=== PATIENT | female | born 1965 | race African-American/Black ===

== ENCOUNTER 2018-05-03 06:25 | Emergency (ER) | payer SELFPAY ==
[2018-05-03] MEDS ORDERED: TETRACAINE HCL 0.5% OPH SOLN 2 ML OS ONE (07:25)
--- NOTE | 2018-05-03 07:26 | ER Document Report ---
HPI - HPI Patient complains to provider of: Left eye irritation Onset: Other Onset/Duration: Persistent - 1 month Quality of pain: Achy Pain Level: 3 Context: Patient presents complaining of left eye irritation for the past month. Patient feels that she has had problems with the upper eyelid. Patient denies wearing contact lenses. Patient states that she saw her primary doctor for this last month and was put on tobramycin drops. Patient is still continue to use the tobramycin drops without any improvement of her symptoms. She does complain of some blurring to her vision. Associated Symptoms: Other - Left eyelid discomfort Exacerbated by: Denies Relieved by: Denies Similar symptoms previously: No Recently seen / treated by doctor: Yes - ROS ROS below otherwise negative: Yes Systems Reviewed and Negative: Yes All other systems reviewed and negative - CONSTITUTIONAL Constitutional: DENIES: Fever - EENT EENT: REPORTS: Eye problems - GASTROINTESTINAL Gastrointestinal: DENIES: Nausea, Patient vomiting - REPRODUCTIVE Reproductive: DENIES: : - DERM Skin Color: Normal Skin Problems: None Past Medical History - General Information source: Patient - Social History Smoking Status: Current Every Day Smoker Smoking Education Provided: Yes Frequency of alcohol use: None Drug Abuse: None Occupation: None Lives with: Family Family History: Reviewed & Not Pertinent - Past Medical History Cardiac Medical History: Reports: Hx Hypertension Pulmonary Medical History: Denies: Hx Asthma, Hx Bronchitis, Hx COPD, Hx Pneumonia Past Surgical History: Reports: Hx Thyroid Surgery - thyroidectomy - Immunizations Hx Diphtheria, Pertussis, Tetanus Vaccination: Yes Vertical Provider Document - CONSTITUTIONAL Agree With Documented VS: Yes Exam Limitations: No Limitations General Appearance: WD/WN, No Apparent Distress - INFECTION CONTROL TRAVEL OUTSIDE OF THE [place] IN LAST 30 DAYS: No - HEENT HEENT: Atraumatic, Normocephalic Notes: No corneal abrasion, ulcer, foreign body or dendrite. Extraocular movements intact. Intraocular pressure 15 with a 95% confidence interval. Light crusting noted to have margins of left eyelid. Patient with purulent drainage from abscess on the inner upper left eyelid. Specimen collected for culture. - NECK Neck: Normal Inspection - RESPIRATORY Respiratory: Breath Sounds Normal, No Respiratory Distress - CARDIOVASCULAR Cardiovascular: Regular Rate, Regular Rhythm - BACK Back: Normal Inspection - MUSCULOSKELETAL/EXTREMETIES Musculoskeletal/Extremeties: MAEW - NEURO Level of Consciousness: Awake, Alert, Appropriate Motor/Sensory: No Motor Deficit - DERM Integumentary: Warm, Dry, No Rash Course - Vital Signs Vital signs: Temp Pulse Resp BP Pulse Ox 97.9 F 85 18 139/88 H 95 05/03/18 06:30 05/03/18 06:30 05/03/18 06:30 05/03/18 06:30 05/03/18 06:30 Discharge - Discharge Clinical Impression: Eyelid abscess Qualifiers: Laterality: left Qualified Code(s): H00.036 - Abscess of eyelid left eye, unspecified eyelid Condition: Stable Disposition: HOME, SELF-CARE Instructions: Abscess ([facility]), Topical Erythromycin ([facility]) Additional Instructions: Return immediately for any new or worsening symptoms Followup with your primary care provider, call tomorrow to make a followup appointment Follow-up with proposal editor on Saturday, call first thing on Saturday morning for an appointment. Let them know that you are seen in the emergency department. Culture is pending, we will call if you need any different treatments. Return over the weekend for any worsening symptoms. Prescriptions: Erythromycin Base [Erythromycin] 1 applic OP QID #3.5 oint..gm. Referrals: [facility] [Provider Group] - 05/05/18 [facility] [Provider Group] - 05/05/18
[2018-05-03] MEDS ORDERED: ERYTHROMYCIN 0.5% OPH OINTMENT 3.5 GM TUBE OS ONE (08:23)
[2018-05-03 09:06] VITALS: BP 137/84
== END 2018-05-03 09:07 | disposition home or self-care (01) ==
LOC: ER 06:25
DX: H00.034 Abscess of left upper eyelid (principal); H53.8 Other visual disturbances; F17.200 Nicotine dependence, unspecified, uncomplicated; I10 Essential (primary) hypertension
CPT/HCPCS: 99283; 87070; 87205; 87077; 87186; J3490

== ENCOUNTER 2018-09-02 20:30 | Emergency (ER) | payer SELFPAY ==
[2018-09-02 21:15] LABS: ABSOLUTE BASOPHILS # (AUTO) 0.1 10^3/uL (0.0-0.2); ABSOLUTE EOSINOPHILS # (AUTO) 0.1 10^3/uL (0.0-0.6); ABSOLUTE LYMPHOCYTES (AUTO) 2.6 10^3/uL (0.5-4.7); ABSOLUTE MONOCYTES (AUTO) 0.7 10^3/uL (0.1-1.4); ABSOLUTE NEUT (AUTO) 4.6 10^3/uL (1.7-8.2); BASOPHILS % (AUTO) 0.9 % (0-2); EOSINOPHILS % (AUTO) 0.7 % (0-6); HEMATOCRIT 36.3 % (36.0-47.0); HEMOGLOBIN 11.9 g/dL (12.0-15.5); MEAN CORPUSCULAR HEMOGLOBIN 28.7 pg (27.0-33.4); MEAN CORPUSCULAR HGB CONC 32.8 g/dL (32.0-36.0); MEAN CORPUSCULAR VOLUME 88 fl (80-97); MONOCYTES % (AUTO) 8.3 % (3-13); PLATELET COUNT 254 10^3/uL (150-450); RED BLOOD COUNT 4.15 10^6/uL (3.72-5.28); RED CELL DISTRIBUTION WIDTH 14.2 % (11.5-14.0); SEGMENTED NEUTROPHILS % (AUTO) 57.1 % (42-78); TOTAL CELLS COUNTED % (AUTO) 100 %
[2018-09-02 21:31] LABS: ALANINE AMINOTRANSFERASE 22 U/L (9-52); ALBUMIN 4.4 g/dL (3.5-5.0); ALKALINE PHOSPHATASE 63 U/L (38-126); ANION GAP 12 (5-19); ASPARTATE AMINO TRANSFERASE 20 U/L (14-36); BILIRUBIN,DIRECT 0.3 mg/dL (0.0-0.4); BILIRUBIN,TOTAL 0.5 mg/dL (0.2-1.3); BLOOD UREA NITROGEN 13 mg/dL (7-20); CALCIUM 9.4 mg/dL (8.4-10.2); CARBON DIOXIDE 34 mmol/L (22-30); CHLORIDE 99 mmol/L (98-107); GLUCOSE 106 mg/dL (75-110); POTASSIUM 3.8 mmol/L (3.6-5.0); SODIUM 144.8 mmol/L (137-145)
[2018-09-02] MEDS ORDERED: METOCLOPRAMIDE HCL ORAL SOLN 10 MG/10 ML UDCUP PO ONE (21:40)
[2018-09-02] MEDS ORDERED: MAG HYDROX/AL HYDROX/SIMETH SUSP 30 ML UDCUP PO ONE (21:40)
[2018-09-02] MEDS ORDERED: LIDOCAINE 2% VISCOUS SOLN 20 ML UDCUP PO ONE (21:40)
--- NOTE | 2018-09-02 21:48 | ER Document Report ---
ED General - General Chief Complaint: Chest Pain Stated Complaint: CHEST PAIN Time Seen by Provider: 09/02/18 21:11 Mode of Arrival: Ambulatory Information source: Patient, Relative, [facility] Records Notes: 52-year-old female with hypertension, hypothyroidism presents with complaint of chest pain that started 5 days prior to arrival. Patient states that she initially experienced chest pain 5 days ago after eating. She describes it as a soreness that is intermittent and only lasts a few minutes at a time. Patient states that since that time she is experienced 1-2 episodes per day that are mostly related with eating food. She denies a burning sensation, nausea, vomiting, shortness of breath, back pain, abdominal pain, dysuria, diarrhea, fever, chills. Patient is currently chest pain-free. She does admit to smoking half a pack of cigarettes per day for the last 20 years. TRAVEL OUTSIDE OF THE [place] IN LAST 30 DAYS: No - HPI Onset: Other Onset/Duration: Intermittent Quality of pain: Achy Severity: Mild Associated symptoms: Chest pain. denies: Fever, Headache, Nausea, Vomiting, Shortness of breath, Sweating, Weakness Exacerbated by: Food Relieved by: Denies Similar symptoms previously: No Recently seen / treated by doctor: No - Related Data Allergies/Adverse Reactions: No Known Allergies Allergy (Verified 05/03/18 07:48) Past Medical History - General Information source: Patient, [facility] Records - Social History Smoking Status: Current Every Day Smoker Cigarette use (# per day): Yes - 10 Smoking Education Provided: Yes - Smoking cessation counseling was provided for 4 minutes at the bedside Frequency of alcohol use: Occasional Drug Abuse: Marijuana Lives with: Spouse/Significant other Family History: Reviewed & Not Pertinent Patient has suicidal ideation: No Patient has homicidal ideation: No - Past Medical History Cardiac Medical History: Reports: Hx Hypertension Pulmonary Medical History: Denies: Hx Asthma, Hx Bronchitis, Hx COPD, Hx Pneumonia Renal/ Medical History: Denies: Hx Peritoneal Dialysis Past Surgical History: Reports: Hx Orthopedic Surgery - carpal tunnel surg, r shoulder, Hx Thyroid Surgery - thyroidectomy - Immunizations Hx Diphtheria, Pertussis, Tetanus Vaccination: Yes Review of Systems - Review of Systems Notes: REVIEW OF SYSTEMS: CONSTITUTIONAL : Denies fever, chills, or sweats. Denies recent illness. Denies weight loss, recent hospitalizations. EENT: Denies visual changes, eye pain. Denies sore throat, oral lesions, difficulty swallowing. CARDIOVASCULAR: Denies palpitations. Denies lower extremity edema. RESPIRATORY: Denies cough. Denies shortness of breath, wheezing. GASTROINTESTINAL: Denies abdominal pain or distention. Denies nausea, vomiting , or diarrhea. Denies blood in vomitus, stools, or per rectum. Denies black, tarry stools. Denies constipation. GENITOURINARY: Denies difficulty urinating, painful urination, frequency, blood in urine, or vaginal discharge. MUSCULOSKELETAL: Denies back or neck pain or stiffness. Denies joint pain or swelling. SKIN: Denies rash, lesions or sores. HEMATOLOGIC : Denies easy bruising or bleeding. LYMPHATIC: Denies swollen glands. NEUROLOGICAL: Denies confusion or altered mental status. Denies loss of consciousness. Denies dizziness or lightheadedness. Denies headache. Denies weakness or paralysis. Denies problems difficulty with ambulation, slurred speech. Denies sensory loss, numbness, or tingling. Denies seizures. PSYCHIATRIC: Denies anxiety or stress. Denies depression, suicidal ideation, or homicidal ideation. Denies visual or auditory hallucinations. Physical Exam - Vital signs Vitals: Temp Pulse Resp BP Pulse Ox 98.3 F 97 18 166/89 H 97 09/02/18 20:39 09/02/18 20:39 09/02/18 20:39 09/02/18 20:39 09/02/18 20:39 Interpretation: Hypertensive - Notes Notes: PHYSICAL EXAMINATION: GENERAL: Well-appearing, well-nourished and in no acute distress. HEAD: Atraumatic, normocephalic. EYES: Pupils equal round and reactive to light, extraocular movements intact, conjunctiva are normal. ENT: Nares patent, oropharynx clear without exudates. Moist mucous membranes. NECK: Normal range of motion, supple without lymphadenopathy LUNGS: Breath sounds clear to auscultation bilaterally and equal. No wheezes rales or rhonchi. HEART: Regular rate and rhythm without murmurs ABDOMEN: Soft, nontender, nondistended abdomen. No guarding, no rebound. No masses appreciated. Female : deferred Musculoskeletal: Normal range of motion, no pitting or edema. No cyanosis. NEUROLOGICAL: Cranial nerves grossly intact. Normal speech, normal gait. Normal sensory, motor exams PSYCH: Normal mood, normal affect. SKIN: Warm, Dry, normal turgor, no rashes or lesions noted. Course - Re-evaluation Re-evalutation: Chest X-Ray 09/02/18 20:47 IMPRESSION: No acute finding. 2010 [facility]- All Rights Reserved Laboratory 09/02/18 09/02/18 09/02/18 21:01 21:01 21:01 WBC 8.0 RBC 4.15 Hgb 11.9 L Hct 36.3 MCV 88 MCH 28.7 MCHC 32.8 RDW 14.2 H Plt Count 254 Seg Neutrophils % 57.1 Lymphocytes % 33.0 Monocytes % 8.3 Eosinophils % 0.7 Basophils % 0.9 Absolute Neutrophils 4.6 Absolute Lymphocytes 2.6 Absolute Monocytes 0.7 Absolute Eosinophils 0.1 Absolute Basophils 0.1 Sodium 144.8 Potassium 3.8 Chloride 99 Carbon Dioxide 34 H Anion Gap 12 BUN 13 Creatinine 1.01 Est GFR ( Amer) > 60 Est GFR (Non-Af Amer) 57 L Glucose 106 Calcium 9.4 Total Bilirubin 0.5 Direct Bilirubin 0.3 Neonat Total Bilirubin Not Reportable Neonat Direct Bilirubin Not Reportable Neonat Indirect Bili Not Reportable AST 20 ALT 22 Alkaline Phosphatase 63 Troponin I < 0.012 Total Protein 8.0 Albumin 4.4 Lipase 09/02/18 21:01 WBC RBC Hgb Hct MCV MCH MCHC RDW Plt Count Seg Neutrophils % Lymphocytes % Monocytes % Eosinophils % Basophils % Absolute Neutrophils Absolute Lymphocytes Absolute Monocytes Absolute Eosinophils Absolute Basophils Sodium Potassium Chloride Carbon Dioxide Anion Gap BUN Creatinine Est GFR ( Amer) Est GFR (Non-Af Amer) Glucose Calcium Total Bilirubin Direct Bilirubin Neonat Total Bilirubin Neonat Direct Bilirubin Neonat Indirect Bili AST ALT Alkaline Phosphatase Troponin I Total Protein Albumin Lipase 57.4 52-year-old female with hypertension, hypothyroidism presents with complaint of chest pain that started 5 days prior to arrival. Patient states that she initially experienced chest pain 5 days ago after eating. She describes it as a soreness that is intermittent and only lasts a few minutes at a time. Patient states that since that time she is experienced 1-2 episodes per day that are mostly related with eating food. She denies a burning sensation, nausea, vomiting, shortness of breath, back pain, abdominal pain, dysuria, diarrhea, fever, chills. Patient is currently chest pain-free. She does admit to smoking half a pack of cigarettes per day for the last 20 years. Vital signs within normal limits except for mildly elevated blood pressure. CBC is without leukocytosis or anemia. CMP shows no significant electrolyte abnormality. Lipase within normal limits. Troponin within normal limits. Patient did receive alleviation of pain after GI cocktail. Symptoms consistent with gastritis. Patient presents with epigastric abdominal pain with associated reflux symptoms most consistent with likely gastritis. Patient has no focal abdominal tenderness on examination. Right upper quadrant ultrasound does not demonstrate any evidence of acute cholecystitis or cholelithiasis. Lipase is normal. No LFT changes. Based on history and exam, I do not suspect ACS, pulmonary embolus, SBO, mesenteric ischemia, acute pancreatitis, biliary pathology, or an abdominal aortic dissection. Patient has had improvement of symptoms here with a GI cocktail. At this time will discharge with return precautions and follow-up recommendations. Verbal discharge instructions given a the bedside and opportunity for questions given. Medication warnings reviewed. Patient is in agreement with this plan and has verbalized understanding of return precautions and the need for primary care follow-up in the next 24-72 hours. 09/02/18 23:12 Patient reevaluated she states that she is chest pain-free after receiving a GI cocktail, morphine, Zofran.. Initial troponin within normal limits. Did discuss staying for repeat troponin but patient is declining at this time. 09/03/18 21:33 09/03/18 21:33 - Vital Signs Vital signs: Temp Pulse Resp BP Pulse Ox 98.3 F 97 14 159/93 H 95 09/02/18 20:39 09/02/18 20:39 09/03/18 00:05 09/03/18 00:05 09/03/18 00:05 - Laboratory Result Diagrams: 09/02/18 21:01 09/02/18 21:01 Laboratory results interpreted by me: 09/02/18 09/02/18 21:01 21:01 Hgb 11.9 L RDW 14.2 H Carbon Dioxide 34 H Est GFR (Non-Af Amer) 57 L - Diagnostic Test Radiology reviewed: Image reviewed, Reports reviewed - EKG Interpretation by [place] EKG shows normal: Sinus rhythm Rate: Normal Rhythm: NSR When compared to previous EKG there are: No significant change Discharge - Discharge Clinical Impression: Epigastric abdominal pain, Reflux gastritis, Fatty liver Hypertension Qualifiers: Hypertension type: unspecified Qualified Code(s): I10 - Essential (primary) hypertension Gastritis Qualifiers: Gastritis type: unspecified gastritis Chronicity: acute Gastritis bleeding: without bleeding Qualified Code(s): K29.00 - Acute gastritis without bleeding Chest pain Qualifiers: Chest pain type: unspecified Qualified Code(s): R07.9 - Chest pain, unspecified Condition: Good Disposition: HOME, SELF-CARE Instructions: Abdominal Pain ([facility]), Antinausea Medication ([facility]), Chest Pain of Unclear Cause ([facility]), Evaluation of Upper Abdominal Pain ([facility]), Gastritis ([facility]), Reflux Disease (GERD) ([facility]) Additional Instructions: Your symptoms appear to be most consistent with stomach or upper intestinal irritation. Please begin taking famotidine 40 mg in the morning and 40 mg at night. This medicine can be purchased directly [id number]. You may also take medicine such as Pepto-Bismol or Tums to assist with your pain. Please return to emergency department immediately if you have worsening of your pain, shortness of breath, vomiting, become unable to exert yourself due to pain or difficulty breathing, you pass out, or have any pain that radiates into your arms, jaw, or back. Please also return if you have any additional symptoms that are concerning to you. As we have discussed, the most important thing is lifestyle changes. You need to avoid smoking, sodas, tea, coffee, alcohol, spicy foods, and acidic foods such as citrus fruits, tomato based products, berries, and most fruit juices. You were seen today for chest pain. The exact cause of your pain is unclear. However, based on your cardiac enzyme testing, chest x-ray, and EKG it does not appear that it is from an immediately life-threatening cause at this time. Although your testing here is normal is critical that you follow-up with your primary care physician for continued evaluation of this chest pain and possible stress testing. I recommended you see your physician within the next 24-48 hours to be evaluated for consideration of a stress test. Please return to emergency department immediately if you have worsening of your chest pain, shortness of breath, vomiting, become unable to exert yourself due to pain or difficulty breathing, you pass out, or have any pain that radiates into your arms, jaw, or back. Please also return if you have any additional symptoms that are concerning to you. Prescriptions: Sucralfate [Carafate 1 gm Tablet] 1 gm PO ACHS #30 tablet Forms: Elevated Blood Pressure
--- NOTE | 2018-09-02 21:49 | RADIOLOGY REPORT (SQ) ---
EXAM DESCRIPTION: XR CHEST 1 VIEW COMPLETED DATE/TME: 09/02/2018 20:47 CLINICAL HISTORY: 52 years, Female, chest pain COMPARISON: None. NUMBER OF VIEWS: TECHNIQUE: LIMITATIONS: None. FINDINGS: No evidence of pulmonary infiltrate or pleural effusion. The heart and mediastinum are unremarkable. Pulmonary vascularity appears normal. IMPRESSION: No acute finding. 2011 [employer]- All Rights Reserved
--- NOTE | 2018-09-03 00:03 | RADIOLOGY REPORT (SQ) ---
EXAM DESCRIPTION: US ABDOMEN LIMITED COMPLETED DATE/TME: 09/02/2018 21:50 CLINICAL HISTORY: 52 years, Female, epigastric abdominal pain COMPARISON: None. TECHNIQUE: Transverse and longitudinal sonographic images of the right upper quadrant LIMITATIONS: None. FINDINGS: Echogenic appearance to the liver consistent with fatty infiltrative change. Pancreas not well seen due to bowel gas. The gallbladder is contracted. No definitive gallstones or gallbladder wall thickening. The CBD measures 1.9 mm. Visualized right kidney is unremarkable. There is no ascites. IMPRESSION: Fatty infiltrative change to the liver. Remainder unremarkable 2010 [employer]- All Rights Reserved
[2018-09-03 00:15] VITALS: BP 159/93
--- NOTE | 2018-09-03 07:21 | EKG REPORT ---
SEVERITY:- NORMAL ECG - SINUS RHYTHM : Confirmed by: Henry Echevarria 03-Sep-2018 07:21:29
--- NOTE | 2018-09-05 10:40 | EKG REPORT ---
SEVERITY:- OTHERWISE NORMAL ECG - SINUS TACHYCARDIA : Confirmed by: Henry Echevarria 05-Sep-2018 10:40:09
== END 2018-09-03 00:26 | disposition home or self-care (01) ==
LOC: ER 20:30
DX: K29.00 Acute gastritis without bleeding (principal); K21.9 Gastro-esophageal reflux disease without esophagitis; R07.9 Chest pain, unspecified; K76.0 Fatty (change of) liver, not elsewhere classified; E89.0 Postprocedural hypothyroidism; R10.13 Epigastric pain; I10 Essential (primary) hypertension; F12.10 Cannabis abuse, uncomplicated; F17.210 Nicotine dependence, cigarettes, uncomplicated; Z71.6 Tobacco abuse counseling
CPT/HCPCS: 93005; 99285; 36415; 83690; 85025; 80053; 84484; 71045; 76705; 93010; J3490